=== PATIENT | female | born 1980 | race Caucasian/White ===

== ENCOUNTER 2016-10-03 21:21 | Emergency (ER) | payer OTHER ==
--- NOTE | ~2016-10-03 | CR117 ---
[facility] A Service of [facility] RADIOLOGY TEXT RESULTS PATIENT: JOAO FOWLER LOCATION: CFTX : [id number] UNIT #: [id number] AGE: [address]: Jennifer Goetz APRN SEX: F ORDER DR: [id number] [facility] [address] [place], [place] [address] [id number] MR#: [id number] Acc #: [id number] NAME: JOAO FOWLER : 1980 SEX: F STUDY DATE/TIME: 10/03/2016 21:36 UNIT: [facility] ROOM: STUDY DESCRIPTION: CR Finger 2 View Thumb Rt Attending Physician: Jennifer Goetz A.P.R.N. Ordering Physician: Jennifer Goetz A.P.R.N. Primary Care Physician: No Primary Care Physician MEDICAL IMAGING REPORT This report is preliminary unless electronic signature is present EXAM Right thumb, 3 views. HISTORY A 36-year-old female right thumb pain, hit thumb on machine at work. FINDINGS 3 views of the right thumb demonstrates no fracture dislocation. No significant arthritic inflammatory change. Soft tissues appear normal. IMPRESSION Negative right thumb Dictated by... Mojgan Thomas M.D. THIS IS AN ELECTRONICALLY VERIFIED REPORT Mojgan Thomas M.D. at 10/04/2016 8:10 PM Soha TD: 10/04/2016 11:14 JOB #: [id number] MEDICAL IMAGING REPORT Page 1 of 1 COPY
== END 2016-10-03 22:25 | disposition home or self-care (01) ==
LOC: CFTX 21:21
DX: L98.9 Disorder of the skin and subcutaneous tissue, unspecified (principal); F17.210 Nicotine dependence, cigarettes, uncomplicated; Z90.49 Acquired absence of other specified parts of digestive tract
CPT/HCPCS: 73140; 82947; 99283

== ENCOUNTER 2016-12-20 13:24 | Emergency (ER) | payer OTHER | END 2016-12-20 16:05 | disposition home or self-care (01) | LOC: CFTX 13:24 → CED 13:24 → CFTX 15:33 | DX: L23.9 Allergic contact dermatitis, unspecified cause (principal); L03.011 Cellulitis of right finger; L03.113 Cellulitis of right upper limb; F17.210 Nicotine dependence, cigarettes, uncomplicated; Z90.49 Acquired absence of other specified parts of digestive tract | CPT/HCPCS: 96372; 99282; J3301 ==